=== PATIENT | female | born 1985 | race American Indian/Alaskan Native ===

== ENCOUNTER 2019-04-07 18:30 | Emergency (ER) | payer OTHER ==
--- NOTE | 2019-04-07 19:34 | Emergency Department Report ---
Blank Doc - Documentation Documentation: This is a 34-year-old female that presents with vaginal itching and irritation. Denies any vaginal discharge. This initial assessment/diagnostic orders/clinical plan/treatment(s) is/are subject to change based on patient's health status, clinical progression and re-assessment by fellow clinical providers in the ED. Further treatment and workup at subsequent clinical providers discretion. Patient/guardians urged not to elope from the ED as their condition may be serious if not clinically assessed and managed. Initial orders include: 1- Patient sent to [facility] for further evaluation and treatment 2- UA 3- wet prep/pelvic exam to be done
[2019-04-08] MEDS ORDERED: XYLOCAINE 1% MPF 5 mL INFILTRATI ONE (00:18)
[2019-04-08] MEDS ORDERED: NORCO 5/325 PO ONE (00:18)
[2019-04-08] MEDS ORDERED: NORCO 5/325 ONE (00:33)
[2019-04-08] MEDS ORDERED: XYLOCAINE 1% 20 mL ONE (00:46)
[2019-04-08 00:47] LABS: HCG Qualitative,Urine Negative (Negative)
--- NOTE | 2019-04-08 00:48 | Emergency Department Report ---
HPI - General Chief Complaint: Urogenital-Female Time Seen by Provider: 04/07/19 19:32 - HPI HPI: 34-year-old -[place] female presents to the emergency department with a complaint of a painful swollen area to the vagina that she noticed on Sunday, 3 days ago, and has been getting progressively worse. She also complains of some burning and itching to the vagina as well but denies any vaginal discharge. She denies any past medical history. She has not taken anything for her symptoms prior to arrival. No primary care physician or [facility]. ED Past Medical Hx - Past Medical History Previous Medical History?: No - Surgical History Past Surgical History?: No - Social History Smoking Status: Never Smoker Substance Use Type: None - Medications Home Medications: Home Medications Medication Instructions Recorded Confirmed Last Taken Type HYDROcodone/APAP 5-325 [Mchenry 1 each PO Q6HR PRN #12 tablet 04/08/19 Unknown Rx 5/325] Sulfamethoxazole/Trimethoprim 1 each PO BID #14 tablet 04/08/19 Unknown Rx [Bactrim DS TAB] ED Review of Systems ROS: Stated complaint: KNOT/PAIN PELVIC Other details as noted in HPI Comment: All other systems reviewed and negative Constitutional: denies: chills, fever Eyes: denies: eye pain, vision change ENT: denies: ear pain, throat pain Respiratory: denies: cough, shortness of breath Cardiovascular: denies: chest pain, palpitations Gastrointestinal: denies: abdominal pain, vomiting Genitourinary: other (vaginal pain and swelling). denies: dysuria, discharge Musculoskeletal: denies: back pain, arthralgia Skin: denies: rash, change in color Neurological: denies: headache, weakness Physical Exam - Physical Exam Vital Signs: Vital Signs 04/07/19 04/07/19 04/08/19 18:58 23:10 00:34 Temperature 98.7 F 98.2 F Pulse Rate 84 86 Respiratory 16 16 18 Rate Blood Pressure 109/73 Blood Pressure 137/83 [Left] O2 Sat by Pulse 98 100 Oximetry Physical Exam: GENERAL: The patient is well-developed well-nourished. HENT: Normocephalic. Atraumatic. Patient has moist mucous membranes. EYES: Extraocular motions are intact. Pupils equal reactive to light bilaterally. NECK: Supple. Trachea is midline. ABDOMEN: Abdomen is soft, nontender. Patient has normal bowel sounds. There is no abdominal distention. SKIN: Skin is warm and dry. NEURO: The patient is awake, alert, and oriented. The patient is cooperative. The patient has no focal neurologic deficits. The patient has normal speech. MUSCULOSKELETAL: There is no tenderness or deformity. There is no limitation range of motion. There is no evidence of acute injury. : There is a tender, fluctuant area of swelling just inside of the vagina coming from the right vaginal wall and appears consistent with a bartholins gland cyst or abscess. ED Course Vital Signs 04/07/19 04/07/19 04/08/19 18:58 23:10 00:34 Temperature 98.7 F 98.2 F Pulse Rate 84 86 Respiratory 16 16 18 Rate Blood Pressure 109/73 Blood Pressure 137/83 [Left] O2 Sat by Pulse 98 100 Oximetry - I & D Right Genitals Type of Procedure: Simple Site: bartholins gland cyst/abscess Blade Size: 11 I & D Procedure: betadine prep, sterile drapes applied Progress: The Bartholin's gland cyst appears to be an abscess. The area was cleaned with Betadine solution. One mL of 1% lidocaine without epinephrine was used to attem pt to locally anesthetize the area. A small incision was made with an 11 blade scalpel. There was a return of about 2 mL's of pus. A Word catheter was then placed in and the balloon was inflated. There were no significant complications seen from this procedure. ED Medical Decision Making - Medical Decision Making Patient presents with a Bartholin's gland abscess. An incision and drainage was done and a Word catheter was placed. She also appears to have a UTI. Vital signs stable including being afebrile. She was given antibiotics and pain medication as a prescription. She was given referrals for [facility]. She will return to the ER with any worsening of symptoms or any acute distress. - Differential Diagnosis Bartholin's gland cyst versus abscess, malignancy Critical Care Time: No Critical care attestation.: If time is entered above; I have spent that time in minutes in the direct care of this critically ill patient, excluding procedure time. ED Disposition Clinical Impression: Bartholin's gland abscess UTI (urinary tract infection) Qualifiers: Urinary tract infection type: acute cystitis Hematuria presence: without hematuria Qualified Code(s): N30.00 - Acute cystitis without hematuria Disposition: DC- TO HOME OR SELFCARE Is pt being admited?: No Condition: Stable Instructions: Bartholin Cyst (ED), Incision and Drainage (ED) Additional Instructions: Please follow up with an [facility] in the next few days. Return to the emergency Department with any worsening of your symptoms or any acute distress. You have been prescribed a medication that is sedating and therefore should not be taken prior to driving, working, and responsible for children and in no way should be mixed with alcohol of any quantity. Prescriptions: Sulfamethoxazole/Trimethoprim [Bactrim DS TAB] 1 each PO BID #14 tablet HYDROcodone/APAP 5-325 [Mchenry 5/325] 1 each PO Q6HR PRN #12 tablet PRN Reason: Pain Referrals: [facility] [Provider Group] - 3-5 Days [facility] [Provider Group] - 3-5 Days [facility] [Provider Group] - 3-5 Days Forms: Accompanied Note, Work/School Release Form(ED)
[2019-04-08 00:54] LABS: Bilirubin,Urine NEG (Negative); Blood,Urine MOD (Negative); Color,Urine Yellow (Yellow); Mucus,Urine FEW /HPF; Protein,Urine <15 mg/dL mg/dL (Negative); Urobilinogen,Urine < 2.0 mg/dL (<2.0)
[2019-04-08 01:47] VITALS: BP 118/78
== END 2019-04-08 01:45 | disposition home or self-care (01) ==
LOC: ED 18:30
DX: N75.1 Abscess of Bartholin's gland (principal); N39.0 Urinary tract infection, site not specified
CPT/HCPCS: 81001; 81025; 87086